=== PATIENT | male | born 1955 | race Caucasian/White ===

== ENCOUNTER 2016-12-13 10:56 | Emergency (ER) | payer BC, OTHER ==
[~2016-12-13] VITALS: Ht 188 cm; Wt 134.0 kg
[~2016-12-13 10:56] MED LIST: Z.0.NO CURRENT MEDS
[2016-12-13 11:14] VITALS: BP 187/116; PULSE 80; RESP 16; TEMP 97.5; O2SAT 98
--- NOTE | 2016-12-13 11:37 | PD ---
HPI Chief Complaint: Complaint Time Seen by Provider: 11:26 Travel History International Travel<30 days: No Contact w/Intl Traveler<30days: No Traveled to known affect area: No History of Present Illness HPI This patient complains of abdominal pain. Location is right lower quadrant. Duration is 3 hours. Severity is moderate. Denies vomiting or diarrhea or fever. He has had dysuria for the last 2-3 weeks. He does not feel like he is having any difficulty generating urine stream more having distention or pain in the bladder. No flank pain. Symptoms have no alleviating factors. PFSH Past Medical History Cardiovascular Problems: Yes (hx of HTN but states takes no meds at this time) Past Surgical History Abdominal Surgery: Yes (HERNIA) Neurologic Surgery: Yes (BACK) Social History Alcohol Use: Yes (2 DRINKS DAILY) Tobacco Use: No Allergies-Medications (Allergen,Severity, Reaction): Coded Allergies: No Known Allergies (Unverified , 12/13/16) Reported Meds & Prescriptions Reported Meds & Active Scripts Active Reported [Unknown Statin] PO DAILY Trazodone (Trazodone HCl) 100 Mg Tab 100 Mg PO HS Ambien (Zolpidem Tartrate) 10 Mg Tab 10 Mg PO HS PRN Wellbutrin Xl 24 HR (Bupropion HCl) 150 Mg Tab 150 Mg PO DAILY Review of Systems General / Constitutional: No: Fever Eyes: No: Visual changes HENT: No: Headaches Cardiovascular: No: Chest Pain or Discomfort Respiratory: No: Shortness of Breath Gastrointestinal: Positive: Abdominal Pain Genitourinary: Positive: Dysuria Musculoskeletal: No: Pain Skin: No Rash Neurologic: No: Weakness Psychiatric: No: Depression Endocrine: No: Polydipsia Hematologic/Lymphatic: No: Easy Bruising Physical Exam Narrative GENERAL: Well-nourished, well-developed patient with abdominal pain. SKIN: Warm and dry. HEAD: Atraumatic. Normocephalic. EYES: Pupils equal and round. No scleral icterus. No injection or drainage. ENT: No nasal bleeding or discharge. Mucous membranes pink and moist. NECK: Trachea midline. No JVD. CARDIOVASCULAR: Regular rate and rhythm. No murmur appreciated. RESPIRATORY: No accessory muscle use. Clear to auscultation. Breath sounds equal bilaterally. GASTROINTESTINAL: Abdomen soft, right lower quadrant is tender but no rebound or guarding, nondistended. Hepatic and splenic margins not palpable. MUSCULOSKELETAL: No obvious deformities. No clubbing. No cyanosis. No edema. NEUROLOGICAL: Awake and alert. No obvious cranial nerve deficits. Motor grossly within normal limits. Normal speech. PSYCHIATRIC: Appropriate mood and affect; insight and judgment normal. Data Data Last Documented VS Vital Signs Date Time Temp Pulse Resp B/P Pulse Ox O2 Delivery O2 Flow Rate FiO2 12/13/16 13:10 76 16 160/84 96 Room Air 12/13/16 11:14 97.5 Orders Basic Metabolic Panel (Bmp) (12/13/16 11:33) Complete Blood Count With Diff (12/13/16 11:33) Prothrombin Time / Inr (Pt) (12/13/16 11:33) Act Partial Throm Time (Ptt) (12/13/16 11:33) Urinalysis - C+S If Indicated (12/13/16 11:33) Ct Abd/Pel W Iv Contrast(Rout) (12/13/16 11:33) Iv Access Insert/Monitor (12/13/16 11:33) Ecg Monitoring (12/13/16 11:33) Oximetry (12/13/16 11:33) NPO (12/13/16 11:33) Sodium Chloride 0.9% Flush (Ns Flush) (12/13/16 11:45) Bladder Scan PRN (12/13/16 11:33) Ondansetron Inj (Zofran Inj) (12/13/16 11:45) Morphine Inj (Morphine Inj) (12/13/16 11:45) Iohexol 350 Inj (Omnipaque 350 Inj) (12/13/16 12:48) Labs Laboratory Tests Test 12/13/16 12/13/16 11:50 11:55 Urine Collection Type CLEAN CATCH Urine Color YELLOW Urine Turbidity CLEAR Urine pH 6.0 Urine Specific [place] 1.024 Urine Protein TRACE mg/dL Urine Glucose (UA) NEG mg/dL Urine Ketones NEG mg/dL Urine Occult Blood LARGE Urine Nitrite NEG Urine Bilirubin NEG Urine Leukocyte Esterase NEG Urine RBC 10-14 /hpf Urine WBC 0-2 /hpf Urine Squamous Epithelial 0-5 /hpf Cells Microscopic Urinalysis Comment CULT NOT INDICATED White Blood Count 4.3 TH/MM3 Red Blood Count 4.29 MIL/MM3 Hemoglobin 14.6 GM/DL Hematocrit 41.6 % Mean Corpuscular Volume 97.0 FL Mean Corpuscular Hemoglobin 34.0 PG Mean Corpuscular Hemoglobin 35.1 % Concent Red Cell Distribution Width 11.8 % Platelet Count 200 TH/MM3 Mean Platelet Volume 7.4 FL Neutrophils (%) (Auto) 68.4 % Lymphocytes (%) (Auto) 21.6 % Monocytes (%) (Auto) 7.3 % Eosinophils (%) (Auto) 1.9 % Basophils (%) (Auto) 0.8 % Neutrophils # (Auto) 2.9 TH/MM3 Lymphocytes # (Auto) 0.9 TH/MM3 Monocytes # (Auto) 0.3 TH/MM3 Eosinophils # (Auto) 0.1 TH/MM3 Basophils # (Auto) 0.0 TH/MM3 CBC Comment DIFF FINAL Differential Comment Prothrombin Time 10.7 SEC Prothromb Time International 1.0 RATIO Ratio Activated Partial 25.4 SEC Thromboplast Time Sodium Level 140 MEQ/L Potassium Level 3.6 MEQ/L Chloride Level 104 MEQ/L Carbon Dioxide Level 23.0 MEQ/L Anion Gap 13 MEQ/L Blood Urea Nitrogen 16 MG/DL Creatinine 1.10 MG/DL Estimat Glomerular Filtration 68 ML/MIN Rate Random Glucose 133 MG/DL Calcium Level 8.3 MG/DL [facility] Medical Decision Making Medical Screen Exam Complete: Yes Emergency Medical Condition: Yes Medical Record Reviewed: Yes Differential Diagnosis Appendicitis, colitis, pyelonephritis Narrative Course I have reviewed the patient's electronic medical record. IV placed I gave him a dose of IV Zofran and IV morphine for symptom relief CBC normal Metabolic profile is normal Coagulation studies are normal Urinalysis shows minor hematuria without infection CT of abdomen and pelvis reveals a 6 mm kidney stone at the bladder juncture Bladder scan reveals only 67 cc of urine, he has no retention. On recheck he feels improved. He has a kidney stone which would explain his right sided symptoms Recommending urology follow-up, multiple prescriptions written Diagnosis Primary Impression: Kidney stone on right side Additional Instructions: The patient was advised to follow up with urologist and return if they worsen. The patient was warned about potential sedation for the medications they will receive on prescription. Med/Other Pt SpecificInfo: Prescription(s) given Scripts Ondansetron (Zofran)4 Mg Tab4 Mg PO Q6HR PRN (NAUSEA OR VOMITING) #10 TAB Ref 0 Prov:Kocisko,Baltazar J. MD 12/13/16 Oxycodone-Acetaminophen (Percocet)5-325 mg Tab1 Tab PO Q6H PRN (PAIN) #20 TAB Ref 0 Prov:Baltazar Macias MD 12/13/16 Tamsulosin (Flomax)0.4 Mg Cap0.4 Mg PO HS #7 CAP Ref 0 Prov:Baltazar Macias MD 12/13/16 Disposition: 01 DISCHARGE HOME Condition: Stable Baltazar Macias MD Dec 13, 2016 11:37
[2016-12-13] MEDS ORDERED: ONDANSETRON HCL 4 MG/2 ML VIAL IVP ONE (11:45)
[2016-12-13] MEDS ORDERED: MORPHINE SULFATE 4 MG/ML INJ IV PUSH ONE (11:45)
[2016-12-13] MEDS ORDERED: SODIUM CHLORIDE 0.9% FLUSH 5 ML FLUSH IVF PRN (11:45)
[2016-12-13] MEDS ORDERED: BUPR150XL PO (11:48)
[2016-12-13] MEDS ORDERED: [UNRECOGNIZED DRUG - REMARK] PO (11:48)
[2016-12-13] MEDS ORDERED: AMBI10TA PO (11:48)
[2016-12-13] MEDS ORDERED: TRAZ100T4 PO (11:48)
[2016-12-13 12:03] VITALS: RESP 16; O2SAT 98
[2016-12-13 12:04] VITALS: BP 168/95; PULSE 65; RESP 16; O2SAT 98
[2016-12-13 12:08] LABS: AUTOMATED NEUTROPHIL # 2.9 TH/MM3 (1.8-7.7); BASOPHIL % 0.8 % (0.0-2.0); EOSINOPHIL # 0.1 TH/MM3 (0-0.4); EOSINOPHIL % 1.9 % (0.0-4.0); HEMATOCRIT 41.6 % (39.0-51.0); HEMO FLAGS DIFF FINAL; LYMPH % 21.6 % (9.0-44.0); LYMPHOCYTE # 0.9 TH/MM3 (1.0-4.8); MEAN CORPUSCULAR HGB CONC 35.1 % (32.0-36.0); MONO % 7.3 % (0.0-8.0); NEUT % 68.4 % (16.0-70.0); PLATELET COUNT 200 TH/MM3 (150-450); RED BLOOD COUNT 4.29 MIL/MM3 (4.50-5.90); RED CELL DISTRIBUTION WIDTH 11.8 % (11.6-17.2); WHITE BLOOD COUNT 4.3 TH/MM3 (4.0-11.0)
[2016-12-13 12:08] LABS: BLOOD, URINE LARGE (NEG); GLUCOSE,URINE NEG (NEG); KETONE, URINE NEG (NEG); NITRITE,URINE NEG (NEG)
[2016-12-13 12:14] LABS: METHOD OF COLLECTION CLEAN CATCH; URINE COLOR YELLOW (YELLW/STRAW)
[2016-12-13 12:15] LABS: COMMENT (UR) CULT NOT INDICATED; CULTURE IF INDICATED CULT NOT INDICATED; SQUAMOUS EPITHELIAL CELL URINE 0-5 /hpf (0-5); WBC, URINE 0-2 /hpf (0-5)
[2016-12-13 12:16] LABS: POTASSIUM 3.6 MEQ/L (3.5-5.1)
[2016-12-13 12:21] LABS: APTT (PATIENT) 25.4 SEC (24.3-30.1); PROTHROMBIN TIME - PATIENT 10.7 SEC (9.8-11.6)
[2016-12-13] MEDS ORDERED: IOHEXOL 350 MG/ML 10 ML VIAL (for RAD DIAG) IV ONE (12:48)
[2016-12-13 13:10] VITALS: BP 160/84; PULSE 76; RESP 16; O2SAT 96
--- NOTE | 2016-12-13 13:29 | RADHPO ---
EXAM DATE/TIME: 12/13/2016 12:41 [facility] COMPARISON: No previous studies available for comparison. INDICATIONS : Lower abdominal pain with painful urination for three weeks. IV CONTRAST: 95 cc Omnipaque 350 (iohexol) IV ORAL CONTRAST: No oral contrast ingested. RADIATION DOSE: 25.20 CTDIvol (mGy) MEDICAL HISTORY : Hypertension. Hypercholesterolemia. SURGICAL HISTORY : Inguinal hernia repair. Umbilical hernia repair. ENCOUNTER: Initial ACUITY: 3 weeks PAIN SCALE: 5/10 LOCATION: lower quadrant TECHNIQUE: Volumetric scanning of the abdomen and pelvis was performed. Using automated exposure control and ad justment of the mA and/or kV according to patient size, radiation dose was kept as low as reasonably achievable to obtain optimal diagnostic quality images. FINDINGS: LOWER LUNGS: The visualized lower lungs are clear. LIVER: Homogeneous density without lesion. There is no dilation of the biliary tree. No calcified gallston es. There is fatty infiltration of the liver. SPLEEN: Normal size without lesion. PANCREAS: Within normal limits. KIDNEYS: The left kidney is normal in size and shape with 2 tiny nonobstructing renal calculi. These measure 1 -2 mm in size. The right kidney is normal in size and shape with 2 simple cysts. There is mild hydron ephrosis and hydroureter extending down to level of bladder. There is adjacent calculus projected int o the bladder measuring 6 mm. There is a tiny less than 1 mm calculus. ADRENAL GLANDS: Within normal limits. VASCULAR: There is no aortic aneurysm. BOWEL/MESENTERY: The stomach, small bowel, and colon demonstrate no acute abnormality. There is no free intraperitone al air or fluid. ABDOMINAL WALL: Within normal limits. RETROPERITONEUM: There is no lymphadenopathy. BLADDER: No wall thickening or mass. There is a 6 mm calculus projected over the posterior right side of the b ladder at the level of distal ureter very REPRODUCTIVE: Within normal limits. INGUINAL: There is no lymphadenopathy or hernia. There are multiple surgical clips and el[place] in the right ing uinal region from prior hernia repair. MUSCULOSKELETAL: Within normal limits for patient age. CONCLUSION: 1. Distal right ureteral calculus projected into the bladder with mild right hydronephrosis and hydro ureter. 2. Tiny bilateral renal calculi. 3. Simple cysts in the right kidney. Dax Christina MD on December 13, 2016 at 13:24 Board Certified Radiologist. This report was verified electronically.
[2016-12-13] MEDS ORDERED: ZOFR4TAB PO (13:45)
[2016-12-13] MEDS ORDERED: TAMS5CAP PO (13:45)
[2016-12-13] MEDS ORDERED: PERC5TAB12 PO (13:45)
== END 2016-12-13 14:03 | disposition home or self-care (01) ==
LOC: PHED 10:56
DX: N20.0 Calculus of kidney (principal); R31.9 Hematuria, unspecified; R30.0 Dysuria; I10 Essential (primary) hypertension
CPT/HCPCS: 74177; 80048; 81001; 85025; 85610; 85730; 96374; 96375; 99284; J2270; J2405; Q9967